=== PATIENT | male | born 1980 | race African-American/Black ===

== ENCOUNTER 2024-07-15 21:51 | Observation (INO) | payer OTHER ==
[2024-07-15 22:17] LABS: Basophils # (A) 0.1 k/uL (0-0.2); Basophils % (A) 1 %; Eosinophils # (A) 0.1 k/uL (0-0.7); Eosinophils % (A) 1 %; HCT 52.1 % (39.0-53.0); Lymphocytes # (A) 3.2 k/uL (1.0-4.8); Lymphocytes % (A) 35 %; MCH 32.9 pg (25.0-35.0); MCHC 32.5 g/dL (31.0-37.0); MCV 101.2 fL (80.0-100.0); Macrocytosis Slight; Mean Platelet Volume 8.4; Monocytes # (A) 0.8 k/uL (0-1.0); Monocytes % (A) 9 %; Neutrophils # (A) 4.5 k/uL (1.3-7.7); Neutrophils % (A) 50 %; Platelet Count 233 k/uL (150-450); RBC 5.15 m/uL (4.30-5.90); RDW 13.3 % (11.5-15.5); WBC 8.9 k/uL (3.8-10.6)
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
[2024-07-15 22:39] LABS: ALT 32 U/L (4-49); AST 42 U/L (17-59); African American GFR (CKD) >90 (>60 ml/min/1.73 sqM); Albumin 4.6 g/dL (3.5-5.0); Alkaline Phosphatase 76 U/L (38-126); Anion Gap 11 mmol/L; Blood Urea Nitrogen 2 mg/dL (9-20); Calcium 9.2 mg/dL (8.4-10.2); Carbon Dioxide 26 mmol/L (22-30); Chloride 109 mmol/L (98-107); Glucose 78 mg/dL (74-99); Non-African American GFR(CKD) >90 (>60 ml/min/1.73 sqM); Potassium 3.7 mmol/L (3.5-5.1); Sodium 146 mmol/L (137-145); Total Bilirubin 0.6 mg/dL (0.2-1.3); Total Protein 7.5 g/dL (6.3-8.2)
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
[2024-07-15 22:58] LABS: Alcohol 319 mg/dL
[2024-07-15] MEDS ORDERED: NALOXONE 0.4 MG/ML 1 ML VIAL IV PRN (23:02)
[2024-07-15] MEDS ORDERED: LORazepam 2 MG/ML INJ IV PRN (23:04)
[2024-07-15] MEDS: SODIUM CHLORIDE 0.9% 1,000 ML IV SCH (23:27)
[2024-07-15] MEDS: LORazepam 2 MG/ML INJ IV PRN (23:33)
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
[2024-07-16] MEDS: THIAMINE 100 MG/ML 2 ML VIAL IM STA (05:27)
[2024-07-16] MEDS: ENOXAPARIN 40 MG/0.4 ML SYRINGE SQ SCH (07:54)
[2024-07-16] MEDS: FOLIC ACID 1 MG TAB PO SCH (07:54)
[2024-07-16] MEDS: MULTIVITAMINS, THERA 1 EACH TAB PO SCH (07:54)
[2024-07-16 08:12] LABS: Basophils % (A) 0 %; Eosinophils # (A) 0.1 k/uL (0-0.7); Eosinophils % (A) 1 %; HCT 49.8 % (39.0-53.0); HGB 15.7 gm/dL (13.0-17.5); Lymphocytes # (A) 1.2 k/uL (1.0-4.8); Lymphocytes % (A) 16 %; MCH 32.2 pg (25.0-35.0); MCHC 31.6 g/dL (31.0-37.0); MCV 101.7 fL (80.0-100.0); Macrocytosis Slight; Mean Platelet Volume 8.1; Monocytes # (A) 0.6 k/uL (0-1.0); Monocytes % (A) 8 %; Neutrophils # (A) 5.7 k/uL (1.3-7.7); Neutrophils % (A) 73 %; Platelet Count 188 k/uL (150-450); RBC 4.89 m/uL (4.30-5.90); RDW 12.9 % (11.5-15.5); WBC 7.8 k/uL (3.8-10.6)
[2024-07-16 08:22] LABS: African American GFR (CKD) >90 (>60 ml/min/1.73 sqM); Anion Gap 9 mmol/L; Blood Urea Nitrogen <2 mg/dL (9-20); Calcium 8.5 mg/dL (8.4-10.2); Carbon Dioxide 24 mmol/L (22-30); Chloride 110 mmol/L (98-107); Glucose 76 mg/dL (74-99); Non-African American GFR(CKD) >90 (>60 ml/min/1.73 sqM); Potassium 4.1 mmol/L (3.5-5.1); Sodium 143 mmol/L (137-145)
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
[2024-07-16] MEDS: BACITRACIN OINT 1 EACH PACKET TOPICAL ONE (12:10)
[2024-07-16] MEDS: ACETAMINOPHEN TAB 325 MG TAB PO PRN (14:28)
[2024-07-16] MEDS: LORazepam 2 MG/ML INJ IV PRN (14:28)
[2024-07-16] MEDS ORDERED: LORazepam 1 MG TAB PO PRN (15:20)
[2024-07-16] MEDS ORDERED: LORazepam 0.5 MG TAB PO PRN (15:20)
[2024-07-16] MEDS ORDERED: LORazepam 2 MG/ML INJ IV PRN (15:20)
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
[2024-07-16 17:44] LABS: Amphetamine Screen,Urine Not Detected (NotDetected); Barbiturate Screen,Urine Not Detected (NotDetected); Benzodiazepines Screen,Urine Detected (NotDetected); Cocaine Screen,Urine Not Detected (NotDetected); Methadone Screen, Urine Not Detected (NotDetected); Opiate Screen,Urine Not Detected (NotDetected); Oxycodone Screen, Urine Not Detected (NotDetected); Phencyclidine Screen,Urine Not Detected (NotDetected); Tricyclic Antidepressant,Urine Not Detected (NotDetected); Urn Cannabinoid Scrn Detected (NotDetected)
[2024-07-17 07:55] VITALS: BP 109/69; PULSE 89; RESP 17; TEMP 99.5
[2024-07-17 08:59] LABS: HGB 15.6 g/dL (13.0-17.0); MCH 32.8 pg (27.0-32.0); MCHC 33.2 g/dL (32.0-37.0); MCV 98.7 FL (80.0-97.0); Mean Platelet Volume 11.6 FL (9.5-12.2); NRBC Per 100 WBC 0 X 10*3/uL (0.00-0.01); Platelet Count 162 X 10*3/uL (140-440); RBC 4.76 X 10*6/uL (4.40-5.60); RDW 13.2 % (11.5-14.5); WBC 5.18 X 10*3/uL (4.50-10.00)
[2024-07-17] MEDS: THIAMINE 100 MG TAB PO SCH (09:04)
[2024-07-17 09:25] LABS: BUN/Creat Ratio 7.75 Ratio (12.00-20.00); Blood Urea Nitrogen 6.2 mg/dL (9.0-27.0); Carbon Dioxide 23.8 mmol/L (21.6-31.8); Chloride 104 mmol/L (96-109); Glucose 72 mg/dL (70-110); Magnesium 2.1 mg/dL (1.5-2.4); Potassium 3.9 mmol/L (3.5-5.5); Sodium 141 mmol/L (135-145)
[2024-07-17 09:26] LABS: ALT 24 U/L (10-49); AST 31 U/L (14-35); Albumin/Globulin Ratio 1.67 Ratio (1.60-3.17); Alkaline Phosphatase 83 U/L (41-126); Globulin 2.4 g/dL (1.6-3.3); Total Bilirubin 1.1 mg/dL (0.3-1.2); Total Protein 6.4 g/dL (6.2-8.2)
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
== END 2024-07-17 11:36 | disposition home or self-care (01) ==
LOC: EC 21:51 → 6NMEDSUR 23:04 → 3SCARD 23:31 → 6NMEDSUR 07-16 01:29
PROVIDERS: ADMIT Internal Medicine; ATTEND Internal Medicine
DX: F10.129 Alcohol abuse with intoxication, unspecified (principal); F10.139 Alcohol abuse with withdrawal, unspecified; S06.9X9A Unspecified intracranial injury with loss of consciousness of unspecified duration, initial encounter; V18.4XXA Pedal cycle driver injured in noncollision transport accident in traffic accident, initial encounter; Y93.55 Activity, bike riding; F12.10 Cannabis abuse, uncomplicated; E87.1 Hypo-osmolality and hyponatremia; R51.9 Headache, unspecified; D75.89 Other specified diseases of blood and blood-forming organs; E87.8 Other disorders of electrolyte and fluid balance, not elsewhere classified; S01.511A Laceration without foreign body of lip, initial encounter; R60.0 Localized edema; Y90.8 Blood alcohol level of 240 mg/100 ml or more; K21.9 Gastro-esophageal reflux disease without esophagitis; Z90.79 Acquired absence of other genital organ(s); Z91.012 Allergy to eggs
CPT/HCPCS: 96376; 96361; 96372 ×2; 96374; 99285; 36415; 80053 ×2; 80048; 83735; 85025 ×2; 85027; 80306; 80320; 72125; 70450; G0378 ×3; G0390; J2060 ×2; J3411; J1650 ×2